=== PATIENT | female | born 1955 | race Caucasian/White ===

== ENCOUNTER 2020-02-27 09:58 | Emergency (ER) | payer OTHER, MEDICARE, BC, SELFPAY ==
[2020-02-27 09:59] VITALS: BP 103/57; PULSE 106; RESP 17; TEMP 36.1; O2SAT 97; BMI 26.9
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
--- NOTE | 2020-02-27 10:09 | VDLE_ITS ---
Reason For Study: LLE SWELLING RIGHT LEFT CFV is compressible, spontaneous, phasic, GSV is normal. competent and demonstrates normal CFV is compressible, spontaneous, phasic, augmentation. competent, and demonstrates normal Procedure augmentation. Exam performed portable in ED. FV is compressible, spontaneous, phasic, The exam was diagnostic. competent and demonstrates normal A preliminary report was called and/or faxed augmentation. to Dr. Miranda @ 11 am. POP V is compressible, spontaneous, phasic, competent and demonstrates normal augmentation. T/P Trunk is compressible. PTV is compressible. LT PerV is compressible. PT unable to tolerate compression at distal FV. Relied on color and pulsed doppler to confirm patentcy. Interpretation Summary There is no evidence of left lower extremity deep vein thrombosis. Left great saphenous vein appears patent and compressible segmentally. Exam limitations as noted. Normal flow patterns right common femoral vein Ordering Physician: Lavon Miranda Referring Physician: Georgiana Harvey Performed By: Shelly Correa, AMORCS, RVT
[2020-02-27 11:00] VITALS: RESP 17
== END 2020-02-27 11:20 | disposition home or self-care (01) ==
LOC: ED 11:12
PROVIDERS: Emergency Provider Student in an Organized Health Care Education/Training Program; PCP Internal Medicine
DX: S80.12XA Contusion of left lower leg, initial encounter (principal); M79.662 Pain in left lower leg; V20.5XXA Motorcycle passenger injured in collision with pedestrian or animal in traffic accident, initial encounter; Y93.9 Activity, unspecified; Y92.9 Unspecified place or not applicable; Y99.9 Unspecified external cause status
CPT/HCPCS: 73590; 93971; 99282